=== PATIENT | female | born 1995 | race Two or more races ===

== ENCOUNTER 2017-11-06 12:17 | Emergency (ER) | payer MEDICAID ==
[~2017-11-06] VITALS: Ht 165.1 cm; Wt 86.0 kg
[2017-11-06] MEDS ORDERED: IBUP-1984 PO (15:18)
[2017-11-06] MEDS ORDERED: AZIT-57 PO (15:18)
[2017-11-06] MEDS ORDERED: NEOM10SO7 OT (15:18)
[2017-11-06 16:06] VITALS: BP 115/72
== END 2017-11-06 16:09 | disposition home or self-care (01) ==
LOC: ER 12:18
DX: H66.92 Otitis media, unspecified, left ear (principal)
CPT/HCPCS: 99283